=== PATIENT | male | born 1960 | race Caucasian/White ===

== ENCOUNTER → 2017-09-21 | Outpatient (CLI) | payer OTHER ==
[~2017-09-21] MED LIST: ASA; HYDR200T72; LISI30TA4; RISE30TA; androgel
== END | disposition home or self-care (01) ==
LOC: CFH 08:12
PROVIDERS: ATTEND Nurse Practitioner Primary Care
DX: M85.89 Other specified disorders of bone density and structure, multiple sites (principal); I10 Essential (primary) hypertension; E78.2 Mixed hyperlipidemia; E55.9 Vitamin D deficiency, unspecified; M32.10 Systemic lupus erythematosus, organ or system involvement unspecified; Z79.899 Other long term (current) drug therapy
CPT/HCPCS: 77080